=== PATIENT | male | born 1980 | race Caucasian/White ===

== ENCOUNTER 2018-11-20 14:35 | Inpatient (IN) | payer SELFPAY ==
[~2018-11-20] VITALS: Ht 185.4 cm; Wt 82.0 kg
[2018-11-20 14:37] VITALS: Ht 185.4 cm; Wt 82.0 kg
[2018-11-20 15:41] LABS: BASOPHIL % 0.9 % (0-2); RED CELL DISTRIBUTION WIDTH 13.7 % (11.5-14.5)
[2018-11-20 15:43] LABS: PLATELET COUNT 81 x10^3mcL (130-400)
[2018-11-20 15:50] LABS: CHLORIDE SERUM 105 mmol/L (98-107); CREATININE SERUM 0.7 mg/dL (0.7-1.3); GFR1 > 60 mL/min; GLUCOSE SERUM 122 mg/dL (74-106); POTASSIUM SERUM 3.2 mmol/L (3.5-5.1); SODIUM SERUM 136 mmol/L (136-145)
[2018-11-20 16:09] LABS: ALBUMIN 3.3 g/dL (3.4-5.0); ALKALINE PHOSPHATASE 68 U/L (46-116); ALT/SGPT 14 U/L (16-63); AST/SGOT 12 U/L (15-37); BILIRUBIN TOTAL 0.3 mg/dL (0.20-1.00); TOTAL PROTEIN, SERUM 7.3 g/dL (6.4-8.2)
[2018-11-20] MEDS ORDERED: VAL10 PO (18:40)
[2018-11-20 19:05] LABS: T3 TOTAL 0.98 ng/mL
[2018-11-20 19:11] LABS: FREE T4 1.68 ng/dL (0.76-1.46); FREE THYROXINE INDEX 2.8 ug/dL (1.4-4.5); T4(THYROXINE) 7.9 ug/dL (4.7-13.3)
[2018-11-20 19:12] VITALS: BP 116/61
[2018-11-20 19:58] LABS: CHOLESTEROL/HDL RATIO 3.6; MAGNESIUM 1.7 mg/dL (1.8-2.4); PHOSPHOROUS 2.4 mg/dL (2.5-4.9)
[2018-11-20 20:41] VITALS: BP 112/58
[2018-11-21 01:52] LABS: UA SPECIFIC GRAVITY 1.015 (1.005-1.035); microscopic required? YES; urine erythrocyte NEGATIVE (NEGATIVE)
[2018-11-21 02:05] LABS: AMPHETAMINE QUAL UR NONE DETECTED (See below)
[2018-11-21 05:11] VITALS: BP 117/56
[2018-11-21 06:24] LABS: CALCIUM 8.5 mg/dL (8.5-10.1); CARBON DIOXIDE 24.4 mmol/L (21-32); CHLORIDE SERUM 108 mmol/L (98-107); CREATININE SERUM 0.8 mg/dL (0.7-1.3); GFR1 > 60 mL/min; GLUCOSE SERUM 121 mg/dL (74-106); PHOSPHOROUS 2.6 mg/dL (2.5-4.9); POTASSIUM SERUM 3.2 mmol/L (3.5-5.1); SODIUM SERUM 142 mmol/L (136-145)
[2018-11-21 07:08] LABS: PLATELET COUNT 203 x10^3mcL (130-400); RED CELL DISTRIBUTION WIDTH 13.9 % (11.5-14.5)
[2018-11-21 08:39] LABS: BASOPHIL % 0 % (0-2)
[2018-11-21 09:32] VITALS: BP 111/72
[2018-11-21 12:15] VITALS: BP 129/75
[2018-11-21 15:53] VITALS: BP 117/60
[2018-11-21 21:04] VITALS: BP 130/69
[2018-11-22 03:04] VITALS: BP 126/70
[2018-11-22 05:30] VITALS: BP 120/59
[2018-11-22 06:56] LABS: CALCIUM 8.3 mg/dL (8.5-10.1); CHLORIDE SERUM 107 mmol/L (98-107); CREATININE SERUM 0.8 mg/dL (0.7-1.3); GFR1 > 60 mL/min; GLUCOSE SERUM 105 mg/dL (74-106); POTASSIUM SERUM 3.5 mmol/L (3.5-5.1); SODIUM SERUM 141 mmol/L (136-145)
[2018-11-22 07:15] LABS: BASOPHIL % 0.2 % (0-2); PLATELET COUNT 189 x10^3mcL (130-400); RED CELL DISTRIBUTION WIDTH 13.6 % (11.5-14.5)
[2018-11-22 08:58] VITALS: BP 114/65
[2018-11-22 13:15] VITALS: BP 131/72
[2018-11-22 17:39] VITALS: BP 126/73
[2018-11-22 21:08] VITALS: BP 128/79
[2018-11-23 05:07] VITALS: BP 137/80
[2018-11-23 07:10] LABS: CALCIUM 8.6 mg/dL (8.5-10.1); CARBON DIOXIDE 25.9 mmol/L (21-32); CHLORIDE SERUM 105 mmol/L (98-107); CREATININE SERUM 0.7 mg/dL (0.7-1.3); GFR1 > 60 mL/min; GLUCOSE SERUM 99 mg/dL (74-106); MAGNESIUM 2.1 mg/dL (1.8-2.4); PHOSPHOROUS 4.4 mg/dL (2.5-4.9); POTASSIUM SERUM 3.4 mmol/L (3.5-5.1); SODIUM SERUM 139 mmol/L (136-145)
[2018-11-23 07:33] LABS: BASOPHIL % 0.2 % (0-2); PLATELET COUNT 185 x10^3mcL (130-400)
[2018-11-23 10:11] VITALS: BP 136/77
[2018-11-23 13:59] VITALS: BP 136/77
[2018-11-23 14:05] VITALS: BP 112/73
== END 2018-11-23 16:49 | disposition home or self-care (01) | DRG 308 ==
LOC: ED 14:35 → DU 17:24
PROVIDERS: Emergency Medicine; ADMIT General Practice
DX: I45.81 Long QT syndrome (principal); N17.0 Acute kidney failure with tubular necrosis; F11.23 Opioid dependence with withdrawal; E44.1 Mild protein-calorie malnutrition; Z60.2 Problems related to living alone; F14.10 Cocaine abuse, uncomplicated; D72.829 Elevated white blood cell count, unspecified; E83.42 Hypomagnesemia; E78.5 Hyperlipidemia, unspecified; E83.39 Other disorders of phosphorus metabolism; F41.9 Anxiety disorder, unspecified; Z79.899 Other long term (current) drug therapy; Z72.89 Other problems related to lifestyle
CPT/HCPCS: 83880; 84439; 87046; 87046-59; G0480; J1200; J1885; J2060; J2270; J7030; Q0163